=== PATIENT | male | born 1980 | race Caucasian/White ===

== ENCOUNTER 2022-01-30 22:26 | Emergency (ER) | payer BC ==
[2022-01-30 23:21] VITALS: PULSE 87; RESP 20; TEMP 98.9; BMI 47.7
[2022-01-30] MEDS ORDERED: ASPIRIN 81 MG CHEWABLE TABLETS PO ONE (23:32)
[2022-01-30] MEDS ORDERED: ALBUTEROL SO4 HFA INHALER IH ONE ×2 (23:33→23:42)
[2022-01-30] MEDS ORDERED: ASPIRIN 81 MG CHEWABLE TABLETS ONE (23:41)
[2022-01-31 01:05] LABS: BASO % 0.9 % (0-2.0); EOS % 4.3 % (0-4.5); HEMATOCRIT 47.5 % (35.4-49); HEMOGLOBIN 15.7 GM/dL (11.7-16.9); MEAN CELL VOLUME 81.7 fl (80-96); MEAN PLT VOLUME 8.7 fl (7.5-11.1); MONO % 12.7 % (3.8-10.2); NEUT % 65.1 % (42.8-82.8); RBC 5.81 M/mm3 (4.00-5.60); RDW 14.8 % (11.9-15.9)
[2022-01-31 01:08] LABS: WHITE BLOOD COUNT 8.2 K/mm3 (4.0-10.0)
[2022-01-31 01:53] LABS: PLATELET COUNT 157 10^3/uL (134-434)
[2022-01-31 02:01] LABS: ALBUMIN 3.3 g/dl (3.4-5.0); BILIRUBIN,TOTAL 0.5 mg/dL (0.2-1); BLOOD UREA NITROGEN 11.4 mg/dL (7-18); CALCIUM 8.6 mg/dL (8.5-10.1); CREATININE 0.9 mg/dL (0.55-1.3); TOT PROT 6.4 g/dl (6.4-8.2)
[2022-01-31 04:54] VITALS: BP 145/98
== END 2022-01-31 07:17 | disposition home or self-care (01) ==
LOC: FER 22:26
PROC: 3E0F7GC Introduction of Other Therapeutic Substance into Respiratory Tract, Via Natural or Artificial Opening (ICD-10-PCS; principal; 2022-01-30)
DX: R07.9 Chest pain, unspecified (principal)
CPT/HCPCS: 0241U-QW; 36415; 71046-TC-FY; 71275-TC; 80053; 84484; 85025; 85730; 93005; 99285-25; Q9967